=== PATIENT | female | born 1985 | race Two or more races ===

== ENCOUNTER 2021-09-14 19:16 | Emergency (ER) | payer MEDICAID, OTHER ==
[~2021-09-14] VITALS: Ht 165.1 cm; Wt 65.8 kg
[2021-09-14 19:38] VITALS: BP 160/95
[2021-09-14 21:19] LABS: Basophils # (auto) 0.1 10 ^3/uL (0-0.2); Basophils % (auto) 0.6 % (0.0-2.0); Eosinophils # (auto) 0 10 ^3/uL (0-0.8); Eosinophils % (auto) 0.3 % (0.0-7.0); Hematocrit 40.8 % (36.0-46.0); Hemoglobin 13.7 g/dL (12.2-16.2); Lymphocytes # (auto) 1.2 10 ^3/uL (0.4-5.4); Lymphocytes % (auto) 11.1 % (10.0-50.0); Mean Corpuscular Hemoglobin 30.3 pg (28.0-32.0); Mean Corpuscular Hgb Conc. 33.6 g/dL (32.0-36.0); Mean Corpuscular Volume 90.1 fL (80.0-100.0); Monocytes # (auto) 0.4 10 ^3/uL (0-1.3); Neutrophils # (auto) 9.2 10 ^3/uL (1.6-8.6); Red Blood Cells 4.53 10^6/uL (4.0-5.20); Red Cell Distribution Width 13.1 % (11.8-14.3); White Blood Cell 10.9 10^3/uL (4.4-10.8)
[2021-09-14 21:31] LABS: Albumin 4.6 g/dL (3.4-5.0); BUN/Creatinine Ratio 13.2; Calcium 9.3 mg/dL (8.5-10.1); Potassium 4.3 mmol/L (3.5-5.1)
[2021-09-14 21:32] LABS: Acetaminophen < 2.0 ug/mL (10-30); Salicylate < 1.7 mg/dL (2.8-20.0)
[2021-09-14 21:33] LABS: Bilirubin, Total 0.5 mg/dL (0.2-1.0); Total Protein 8.1 g/dL (6.4-8.2)
== END 2021-09-15 08:04 | disposition left against medical advice (07) ==
LOC: EDBD 19:16 → ER 19:20
DX: F22 Delusional disorders (principal); Z59.00 Homelessness unspecified
CPT/HCPCS: 36415; 80053; 80329; 84702; 85025